=== PATIENT | female | born 1960 | race Caucasian/White ===

== ENCOUNTER → 2016-07-14 17:16 | Outpatient (CLI) | payer BC | END | disposition home or self-care (01) | LOC: D.MAMMO 16:15 | DX: Z12.31 Encounter for screening mammogram for malignant neoplasm of breast (principal) ==

== ENCOUNTER → 2016-09-05 18:17 | Outpatient (CLI) | payer BC | END | disposition home or self-care (01) | LOC: D.MAMMO 09:30 | DX: R92.8 Other abnormal and inconclusive findings on diagnostic imaging of breast (principal) ==

== ENCOUNTER → 2017-05-22 16:43 | Outpatient (CLI) | payer BC | END | disposition home or self-care (01) | LOC: D.MAMMO 05-10 14:30 → D.US 05-10 15:00 → D.MAMMO 05-24 14:30 | DX: R92.8 Other abnormal and inconclusive findings on diagnostic imaging of breast (principal) ==

== ENCOUNTER 2018-09-10 13:00 | Outpatient (CLI) | payer BC | END 2018-09-10 13:30 | disposition home or self-care (01) | LOC: D.MAMMO 13:00 | PROVIDERS: ATTEND Family Medicine | DX: N64.4 Mastodynia (principal) ==

== ENCOUNTER → 2019-05-29 08:33 | Outpatient (CLI) | payer BC ==
[~2019-05-29] VITALS: Ht 161.3 cm; Wt 129.7 kg
[2019-05-29 11:54] VITALS: Ht 161.3 cm; Wt 129.7 kg
== END | disposition home or self-care (01) ==
LOC: D.FANS 08:33
PROVIDERS: ATTEND Family Medicine
DX: Z68.43 Body mass index [BMI] 50.0-59.9, adult (principal)

== ENCOUNTER → 2019-06-03 11:08 | Outpatient (CLI) | payer BC ==
[2019-05-29 11:54] VITALS: BMI 49.9
--- NOTE | 2019-06-06 15:25 | EC ---
PATIENT:SIMON PITTS DATE OF SERVICE: 06/03/19 SEX: F MEDICAL RECORD: [id number] DATE OF : 58 LOCATION:[facility] AGE OF PATIENT: 58 ADMISSION DATE: 06/03/19 REFERRING PHYSICIAN: INTERPRETING PHYSICIAN: CHRIS COMER MD ECHOCARDIOGRAM REPORT ECHO CHARGES 4 ECHO COMPLETE Date: 06/03/19 CLINICAL DIAGNOSIS: MITRAL REGURG ECHOCARDIOGRAPHIC MEASUREMENTS (adult normal given) AC root (d.<3.7cm) 3.1 cm LV Septum d (<1.2 cm> 1.3 cm Valve Excursion 1.6 cm LV Septum (systole) 1.5 cm Left Atria (s.<4.0cm> 3.6 cm LVPW d(<1.2cm) 1.2 cm RV (d.<2.3cm) 2.9 cm LVPW (sytole) 1.6 cm LV diastole(<5.6CM) 4.6 cm MV E-F(>70mm/sec) cm LV systole 2.2 cm LVOT Diameter 1.9 cm MV exc.(>10mm) 1.1 cm Est.ejection fraction (50-75%) % DOPPLER: LVIT cm/sec A 91.0 cm/sec E 105.0 cm/sec LA cm/sec RVSP 32 mmHg LVOT 107 cm/sec AOP1/2T m/s Asc. Ao 142 cm/sec RVOT 95 cm/sec RA cm/sec PA 136 cm/sec AV Gradient Peak 8.05 mmHg AV Mean 4.05 mmHg AV Area 2.3 cm MV Gradient Peak 6.23 mmHg MV Mean 2.20 mmHg MV Area cm COMMENTS: Nut Tapper: James RODRIGUEZ Mechanical Maintenance Foreman: 1 Dr. Comer TAPE# PACS Pericardial Effusion N DATE OF SERVICE: FINDINGS: 1. Left ventricular chamber size is within normal limits. Left ventricular systolic function is normal. Overall ejection fraction estimated at 60%. 2. Left atrium, right atrium, right ventricular chamber sizes are within normal limits. 3. Valvular structures have normal structure and motion. 4. Doppler interrogation reveals mild mitral regurgitation, mild tricuspid regurgitation, no other valvular insufficiency or stenosis. Pulmonary systolic ECHOCARDIOGRAM REPORT [id number] SIMON PITTS pressure estimated at 32 mmHg. 5. No evidence of pericardial effusion or left ventricular thrombus. TRANSINT:[id number] Voice Confirmation ID: [id number] DOCUMENT ID: [id number] CHRIS COMER MD at 1525 CC: [id number] DICTATION DATE: 06/04/19 1206 RED CROSS EXECUTIVE DIRECTOR: 06/04/19 1300 DEP CLI 06/03/19 [place] [id number]
== END | disposition home or self-care (01) ==
LOC: D.HCCECHO 11:08
PROVIDERS: ATTEND Internal Medicine Interventional Cardiology
DX: I34.0 Nonrheumatic mitral (valve) insufficiency (principal)

== ENCOUNTER 2020-01-15 14:45 | Outpatient (CLI) | payer BC ==
[2019-05-29 11:54] VITALS: BMI 49.9
== END 2020-01-15 14:46 | disposition home or self-care (01) ==
LOC: D.MAMMO 14:45
PROVIDERS: ATTEND Family Medicine
DX: Z12.31 Encounter for screening mammogram for malignant neoplasm of breast (principal)